=== PATIENT | female | born 1990 | race Caucasian/White ===

== ENCOUNTER 2017-05-28 18:22 | Emergency (ER) | payer BC ==
[2017-05-28 18:33] VITALS: TEMP 97.3; BMI 25.0
[2017-05-28] MEDS ORDERED: ONDANSETRON 4 MG/2 ML VIAL ONE (18:34)
[2017-05-28] MEDS ORDERED: SODIUM CHLORIDE 1,000 ML IV STA (19:01)
--- NOTE | 2017-05-28 19:01 | PDOC ---
History of Present Illness - General Chief Complaint: Nausea/Vomiting Stated Complaint: VOMITING Time Seen by Provider: 05/28/17 18:31 Past History - Past Medical History Allergies/Adverse Reactions: Allergies Allergy/AdvReac Type Severity Reaction Status Date / Time No Known Allergies Allergy Verified 05/28/17 18:40 Home Medications: Ambulatory Orders NK [No Known Home Medication] 05/28/17 - Psycho/Social/Smoking Cessation Hx Anxiety: No Suicidal Ideation: No Smoking History: Never smoked Have you smoked in the past 12 months: No Information on smoking cessation initiated: No Hx Alcohol Use: No Drug/Substance Use Hx: No Substance Use Type: None Review of Systems - Review of Systems Able to Perform ROS?: Yes Is the patient limited Wolof proficient: No Constitutional: No: Symptoms Reported, See HPI, Chills, Diaphoresis, Fever, Loss of Appetite, Malaise, Night Sweats, Weakness, Weight Stable, Unintentional Wgt. Loss, Unexplained wgt Loss, Other HEENTM: No: Symptoms Reported, See HPI, Eye Pain, Blurred Vision, Tearing, Recent change in vision, Double Vision, Cataracts, Ear Pain, Ocular Prothesis, Ear Discharge, Nose Pain, Nose Congestion, Tinnitus, Nose Bleeding, Hearing Loss , Throat Pain, Throat Swelling, Mouth Pain, Dental Problems, Difficulty Swallowing, Mouth Swelling, Other Respiratory: No: Symptoms reported, See HPI, Cough, Orthopnea, Shortness of Breath, SOB with Exertion, SOB at Rest, Stridor, Wheezing, Productive cough, Hemoptysis, Other Cardiac (ROS): No: Symptoms Reported, See HPI, Chest Pain, Edema, Irregular Heart Rate, Lightheadedness, Palpitations, Syncope, Chest Tightness, Other ABD/GI: Yes: Nausea, Vomiting : No: Symptoms Reported, See HPI, Burning, Dysuria, Discharge, Frequency, Flank Pain, Hematuria, Incontinence, Pain, Urgency, Testicular Mass, Testicular Swelling, Lesions, Testicular Pain, Other Neurological: No: Symptoms reported, See HPI, Headache, Numbness, Paresthesia, Pre-Existing Deficit, Seizure, Tingling, Tremors, Weakness, Unsteady Gait, Ataxia, Dizziness, Other Hematologic/Lymphatic: No: Symptoms Reported, See HPI, Anemia, Blood Clots, Easy Bleeding, Easy Bruising, Bleeding Diathesis, Lymph Node Abnormalities, Swollen Glands, Other *Physical Exam - Vital Signs Last Vital Signs Temp Pulse Resp BP Pulse Ox 97.3 F L 50 L 16 103/62 100 05/28/17 18:25 05/28/17 18:25 05/28/17 18:25 05/28/17 18:25 05/28/17 18:25 - Physical Exam General Appearance: Yes: Nourished HEENT: positive: Normal ENT Inspection, Normal Voice ED Treatment Course - LABORATORY CBC & Chemistry Diagram: 05/28/17 19:05 05/28/17 19:05 *DC/Admit/Observation/Transfer Diagnosis at time of Disposition: Hypokalemia - Discharge Dispostion Disposition: HOME Condition at time of disposition: Stable - Patient Instructions Print Language: [place] ISLAND[place]
[2017-05-28 19:15] LABS: BASOPHIL 0.4 % (0-2.0); EOSINOPHIL 1.8 % (0-4.5); MCH 28.4 pg (25.7-33.7); MCHC 33.6 g/dl (32.0-36.0); MEAN CELL VOLUME 84.6 fl (80-96); MEAN PLT VOLUME 8.7 fl (7.5-11.1); PLATELET COUNT 234 K/MM3 (134-434); RDW 16.9 % (11.6-15.6); WHITE BLOOD COUNT 6.3 K/mm3 (4.0-10.0)
[2017-05-28] MEDS ORDERED: METOCLOPRAMIDE HCL INJECTION 10 MG/2 ML VIAL IVPUSH ONE (19:28)
--- NOTE | 2017-05-28 19:39 | PDOC ---
Attending Attestation - Resident Resident Name: Gustavo Salas - HPI HPI: 05/28/17 19:38 26 yo female with 1 day of nausea and vomiting.no fever ,no bloody stools.no recent travel. 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 plan preg test,cbc,comp , IVF,anti emetics and re eval
--- NOTE | 2017-05-28 19:40 | PDOC ---
History of Present Illness - General Chief Complaint: Nausea/Vomiting Stated Complaint: VOMITING Time Seen by Provider: 05/28/17 18:31 History Source: Patient Exam Limitations: No Limitations - History of Present Illness Initial Comments: 05/28/17 19:37 The patient is a 26F with no PMH who presents to the ED with nausea, vomiting, heartburn, and complaints of weakness. This started yesterday while she was at work. She was dismissed from work and states she vomited all day. She woke up this morning feeling weak, continued vomiting, had no energy, and states that she throws up everything that she eats. This happened to her 1 year ago and she states she came to the ED and was given a K drip. Her LMP was 1 month ago. Her vomitus is non bloody non bilious. She states that school has been a stressor in her life. ROS+: nausea, vomiting, heartburn, numbness/tingling in her hands, SOB which has resolved ROS-: dizzy, lightheaded, fever, chills, diarrhea, constipation, dysuria, headache, chest pain PSH: None Allergies: NKDA Social: No smoking, drinking, drugs Past History - Past Medical History Allergies/Adverse Reactions: Allergies Allergy/AdvReac Type Severity Reaction Status Date / Time No Known Allergies Allergy Verified 05/28/17 18:40 Home Medications: Ambulatory Orders NK [No Known Home Medication] 05/28/17 - Psycho/Social/Smoking Cessation Hx Anxiety: No Suicidal Ideation: No Smoking History: Never smoked Have you smoked in the past 12 months: No Information on smoking cessation initiated: No Hx Alcohol Use: No Drug/Substance Use Hx: No Substance Use Type: None Review of Systems - Review of Systems Able to Perform ROS?: Yes Is the patient limited Lithuanian proficient: No Constitutional: Yes: Malaise, Weakness. No: Chills, Diaphoresis, Fever Respiratory: Yes: Shortness of Breath (resolved) Cardiac (ROS): No: Chest Pain ABD/GI: Yes: Nausea, Vomiting, Indigestion. No: Constipated, Diarrhea Neurological: Yes: Numbness, Paresthesia, Weakness Psychiatric: Yes: Stressors *Physical Exam - Vital Signs Last Vital Signs Temp Pulse Resp BP Pulse Ox 97.3 F L 50 L 16 103/62 100 05/28/17 18:25 05/28/17 18:25 05/28/17 18:25 05/28/17 18:25 05/28/17 18:25 - Physical Exam General Appearance: Yes: Appropriately Dressed, Mild Distress Respiratory/Chest: positive: Lungs Clear, Normal Breath Sounds. negative: Respiratory Distress, Crackles, Rales, Wheezing Cardiovascular: positive: Regular Rhythm, Regular Rate, S1, S2, Bradycardia Gastrointestinal/Abdominal: positive: Normal Bowel Sounds, Flat, Soft, Tenderness (to deep palpation, diffuse). negative: Tender Musculoskeletal: negative: CVA Tenderness, CVA Tenderness (R), CVA Tenderness (L ) Extremity: positive: Normal Inspection, Normal Range of Motion Integumentary: positive: Dry. negative: Swelling Neurologic: positive: Fully Oriented Heart Score/ECG Review - ECG Intrepretation Rhythm: Regular Rhythm - Hi Hat Hi Hat: Normal - ST and T Prolonged Q-T Interval: Yes - ECG Impressions Normal ECG: Yes Bradycardia: Yes ED Treatment Course - LABORATORY CBC & Chemistry Diagram: 05/28/17 19:05 05/28/17 19:05 - ADDITIONAL ORDERS Additional order review: 05/28/17 19:05 RBC 4.22 MCV 84.6 MCHC 33.6 RDW 16.9 H MPV 8.7 Neutrophils % 64.0 Lymphocytes % 28.4 Monocytes % 5.4 Eosinophils % 1.8 Basophils % 0.4 Medical Decision Making - Medical Decision Making 05/28/17 19:45 Patient is a 26 F with no PMH who presents with nausea, vomiting, indigestion, and weakness. She is mildly distressed. Labs have been drawn to check for infection, electrolyte abnormality, and . 05/28/17 19:51 K is 2.7. Oral K has been ordered after patient states that she can try an oral pill. 05/28/17 20:50 Patient rejects ultrasound. She is adamant about leaving. She is stable for discharge and will be discharged. *DC/Admit/Observation/Transfer Diagnosis at time of Disposition: Hypokalemia - Discharge Dispostion Disposition: HOME Condition at time of disposition: Stable Admit: No - Attestations Physician Attestion: 05/28/17 19:52 I, Dr. Gustavo Salas, attest that this document has been prepared under my direction and personally reviewed by me in its entirety. I further attest, that it accurately reflects all work, treatment, procedures and medical decision -making performed by me.
[2017-05-28 19:41] LABS: ALBUMIN 3.5 g/dl (3.4-5.0); ANION GAP 11 (8-16); BILIRUBIN,TOTAL 0.3 mg/dL (0.2-1.0); CALCIUM 8.1 mg/dL (8.5-10.1); CO2 23 mmol/L (21-32); CREATININE 0.6 mg/dL (0.55-1.02); GLUCOSE,RANDOM 88 mg/dL (74-106); SGOT/AST 165 U/L (15-37); SGPT/ALT 150 U/L (12-78); TOT PROT 6.4 g/dl (6.4-8.2)
[2017-05-28 19:42] LABS: ALK PHOS 48 U/L (45-117)
[2017-05-28] MEDS ORDERED: POTASSIUM CHLORIDE TABS 20 MEQ TABLET.ER (FP) PO ONE ×4 (19:47→21:06)
[2017-05-28] MEDS ORDERED: METOCLOPRAMIDE HCL INJECTION 10 MG/2 ML VIAL ONE (19:48)
[2017-05-28 21:21] VITALS: BP 110/70; PULSE 68
--- NOTE | 2017-05-29 10:42 | EKG ---
Test Reason : Blood Pressure : / mmHG Vent. Rate : 047 BPM Atrial Rate : 047 BPM P-R Int : 126 ms QRS Dur : 086 ms QT Int : 570 ms P-R-T Axes : 032 054 058 degrees QTc Int : 504 ms SINUS BRADYCARDIA PROLONGED QT ABNORMAL ECG NO PREVIOUS ECGS AVAILABLE Confirmed by CHLOE DAS, STACY ([id number]) on 05/29/2017 10:42:33 AM Referred By: Confirmed By:STACY CORONA MD
== END 2017-05-28 21:17 | disposition home or self-care (01) ==
LOC: JER 18:22
PROC: 3E0337Z Introduction of Electrolytic and Water Balance Substance into Peripheral Vein, Percutaneous Approach (ICD-10-PCS; principal; 2017-05-28)
DX: E87.6 Hypokalemia (principal)
CPT/HCPCS: 36415; 80053; 83690; 84703; 85025; 93005; 93010; 99282-25

== ENCOUNTER → 2017-05-30 | Emergency (ER) | payer BC ==
[~2017-05-30] MED LIST: ACETAMINOPHEN/CAFFEINE/BUTALBITAL 1 TAB ONE; ACETAMINOPHEN/CAFFEINE/BUTALBITAL 1 TAB PO ONE; KETOROLAC TROMETHAMINE 30 MG/1 ML VIAL IVPUSH ONE; KETOROLAC TROMETHAMINE 30 MG/1 ML VIAL ONE; MAGNESIUM SULF 50% (8.12 MEQ/2 ML-1 GM VIAL) IVPB ONE; MAGNESIUM SULF 50% (8.12 MEQ/2 ML-1 GM VIAL) ONE; METOCLOPRAMIDE HCL INJECTION 10 MG/2 ML VIAL IVPB ONE; METOCLOPRAMIDE HCL INJECTION 10 MG/2 ML VIAL ONE; SODIUM CHLORIDE 1,000 ML IV STA; methylPREDNISolone NA SUCC 125 MG/2 ML VIAL IVPB ONE; methylPREDNISolone NA SUCC 125 MG/2 ML VIAL ONE
[2017-05-30 20:39] VITALS: BP 105/66; PULSE 84; TEMP 98.7; BMI 25.0
--- NOTE | 2017-05-30 20:57 | PDOC ---
History of Present Illness - General Chief Complaint: Headache Stated Complaint: HEADACHE Time Seen by Provider: 05/30/17 20:43 History Source: Patient Exam Limitations: No Limitations - History of Present Illness Initial Comments: 05/30/17 20:52 26yo Female patient w/ PmHx: Migraines, seen at [facility] earlier today for similar symptoms. Patient states taking Ibuprofen, Excedrin and "nothing is helping." LNMP 1 month ago. Denies n/v/d, fever. Reports 08/04 Severity. She reports she is not currently under the care of Neurology. Timing/Duration: reports: other (This morning.) Severity: Yes: severe Episode Description: See HPI Associated Symptoms: reports: nausea/vomiting. denies: denies symptoms, confusion, fatigue, fever/chills, insomnia, loss of consciousness, muscle spasms , numbness in legs/feet, paresthesia, ringing in ears, seizures, sleepy, slurred speech, tingling in legs/feet, trouble walking, vision changes, weakness , other Past History - Travel Traveled outside of the country in the last 30 days: No Close contact w/someone who was outside of country & ill: No - Past Medical History Allergies/Adverse Reactions: Allergies Allergy/AdvReac Type Severity Reaction Status Date / Time No Known Allergies Allergy Verified 05/28/17 18:40 Home Medications: Ambulatory Orders Acetaminophen with Codeine [Tylenol with Codeine #3 Tablet] 1 each PO DAILY 05/11 Clonazepam 0.125 mg PO DAILY 05/30/17 Dextroamphetamine/Amphetamine [Adderall Xr 30 mg Capsule] 30 mg PO DAILY Butalbit/Acetamin/Caff/Codeine [Fioricet-Cod 20-497-61-30 Cap] 1 each PO Q4H PRN #18 capsule MDD 6 tabs 05/31/17 Ibuprofen 600 mg PO Q6H PRN #20 tablet 05/31/17 - Psycho/Social/Smoking Cessation Hx Anxiety: No Suicidal Ideation: No Smoking History: Unknown if ever smoked Have you smoked in the past 12 months: No Hx Alcohol Use: No Drug/Substance Use Hx: No Substance Use Type: None Neuro Specific PMHX - Complaint Specific PMHX Glaucoma: No Herniated Disk: No Laminectomy: No Migraine: Yes Multiple Sclerosis: No Neuropathy: No TIA: No Review of Systems - Review of Systems Able to Perform ROS?: Yes Is the patient limited Montserratian proficient: No Constitutional: No: Chills, Fever HEENTM: No: Eye Pain, Blurred Vision, Double Vision, Throat Pain ABD/GI: Yes: Nausea, Vomiting. No: Constipated, Diarrhea, Poor Appetite, Poor Fluid Intake, Rectal Bleeding, Abdominal cramping : No: Burning, Dysuria, Discharge, Frequency, Flank Pain, Hematuria, Pain Musculoskeletal: No: Back Pain, Neck Pain Integumentary: No: Bruising, Dryness, Erythema, Sweating Neurological: Yes: Headache. No: Seizure, Tremors, Weakness, Dizziness All Other Systems: Reviewed and Negative *Physical Exam - Vital Signs Last Vital Signs Temp Pulse Resp BP Pulse Ox 98.7 F 84 18 105/66 05/30/17 20:33 05/30/17 20:33 05/30/17 20:33 05/30/17 20:33 - Physical Exam General Appearance: Yes: Nourished, Appropriately Dressed, Mild Distress. No: Apparent Distress, Moderate Distress, Severe Distress HEENT: positive: EOMI, DAVID, Normal ENT Inspection, Normal Voice, Symmetrical, TMs Normal, Pharynx Normal, Photophobia. negative: Pharyngeal Erythema, Tonsillar Exudate, Tonsillar Erythema, Nasal Congestion, Rhinorrhea, TM Bulging , TM Dull, TM Erythema Neck: positive: Trachea midline, Supple. negative: Stridor, Lymphadenopathy (R) , Lymphadenopathy (L), Tender lateral Respiratory/Chest: positive: Lungs Clear, Normal Breath Sounds. negative: Chest Tender, Respiratory Distress, Accessory Muscle Use, Labored Respiration, Rapid RR, Rhonchi, Stridor, Wheezing Cardiovascular: positive: Regular Rhythm, Regular Rate Gastrointestinal/Abdominal: positive: Normal Bowel Sounds, Soft. negative: Distended, Guarding, Rebound, Tenderness Musculoskeletal: positive: Normal Inspection. negative: CVA Tenderness, Vertebral Tenderness Extremity: positive: Normal Capillary Refill, Normal Inspection, Normal Range of Motion. negative: Tender, Delayed Capillary Refill, Pedal Edema, Swelling, Calf Tenderness, Erythema, Inflammation Integumentary: positive: Normal Color, Dry, Warm Neurologic: positive: senior security engineer II-XII NML intact, Fully Oriented, Alert, Normal Mood/ Affect, Normal Response, Motor Strength 03/29 ED Treatment Course - LABORATORY CBC & Chemistry Diagram: 05/30/17 21:33 05/30/17 22:26 Progress Note - Progress Note Progress Note: Patient refused Ct-Scan at this time. 0052 7-4-17 Medical Decision Making - Medical Decision Making 05/31/17 00:58 Search Terms: Sofia Wright, 1990 Search Date: 05/31/2017 12:57:31 AM The Drug Utilization Report below displays all of the controlled substance prescriptions, if any, that your patient has filled in the last twelve months. The information displayed on this report is compiled from pharmacy submissions to the Department, and accurately reflects the information as submitted by the pharmacies. This report was requested by: Alexander Villatoro | Reference #: [id number] Others' Prescriptions Patient Name: Sofia Wright Date: 1990 Address: [address] [place] [address] Sex: Female Rx Written Rx Dispensed Drug Quantity Days Supply Prescriber Name 05/27/2017 05/28/2017 clonazepam 1 mg tablet 90 30 Kiblitsky, Daina 05/27/2017 05/28/2017 adderall xr 30 mg capsule 30 30 Kiblitsky, Daina 04/24/2017 05/01/2017 clonazepam 1 mg tablet 90 30 Kiblitsky, Daina 04/24/2017 05/01/2017 adderall xr 30 mg capsule 30 30 Kiblitsky, Daina 03/25/2017 04/02/2017 clonazepam 1 mg tablet 90 30 Kiblitsky, Daina 03/25/2017 04/02/2017 adderall xr 30 mg capsule 30 30 Kiblitsky, Daina 02/26/2017 03/06/2017 adderall xr 30 mg capsule 30 30 Kiblitsky, Daina 01/31/2017 02/03/2017 clonazepam 1 mg tablet 90 30 Kiblitsky, Daina 01/21/2017 01/28/2017 adderall xr 30 mg capsule 30 30 Kiblitsky, Daina 12/31/2016 01/04/2017 clonazepam 1 mg tablet 90 30 Trang Saldivar MD 12/10/2016 12/12/2016 adderall xr 20 mg capsule 30 30 Kiblitsky, Daina Patient Name: Sofia Wright Date: 1990 Address: [place] [address] Sex: Female Rx Written Rx Dispensed Drug Quantity Days Supply Prescriber Name 11/08/2016 11/19/2016 clonazepam 1 mg tablet 90 30 CherTrang lozano MD 11/08/2016 11/17/2016 vyvanse 30 mg capsule 30 30 CherfasTrang MD 10/09/2016 10/16/2016 vyvanse 30 mg capsule 30 30 CherfasTrang MD 10/09/2016 10/16/2016 clonazepam 1 mg tablet 90 30 CherfasTrang MD 09/23/2016 09/23/2016 tramadol hcl 50 mg tablet 30 15 Magaly Vegas MD 09/08/2016 09/14/2016 vyvanse 40 mg capsule 30 30 CherfasTrang MD 08/31/2016 08/31/2016 clonazepam 1 mg tablet 90 30 Amos Castellanos MD 08/20/2016 08/20/2016 oxycodone-acetaminophen 5-325 mg tab 4 1 Trang Saldivar MD 08/02/2016 08/02/2016 vyvanse 40 mg capsule 30 30 CherfasTrang MD 07/23/2016 07/27/2016 acetaminophen-cod #3 tablet 30 30 CherfasTrang MD 07/12/2016 07/12/2016 acetaminophen-cod #3 tablet 20 3 Constantino Liu MD 07/02/2016 07/02/2016 vyvanse 30 mg capsule 30 30 CherfasTrang MD Patient Name: Sofia Wright Date: 1990 Address: [address] [place] [id number] Sex: Female Rx Written Rx Dispensed Drug Quantity Days Supply Prescriber Name 08/23/2016 08/23/2016 tramadol hcl 50 mg tablet 6 2 Tyler Corcoran MD * - Drugs marked with an asterisk are compound drugs. If the compound drug is made up of more than one controlled substance, then each controlled substance will be a separate row in the table. *DC/Admit/Observation/Transfer Diagnosis at time of Disposition: Headache Qualifiers: Headache type: tension-type Headache chronicity pattern: acute headache Intractability: not intractable Qualified Code(s): G44.209 - Tension-type headache, unspecified, not intractable Leukocytosis Qualifiers: Leukocytosis type: unspecified Qualified Code(s): D72.829 - Elevated white blood cell count, unspecified - Discharge Dispostion Disposition: HOME Condition at time of disposition: Improved Admit: No - Prescriptions Prescriptions: Butalbit/Acetamin/Caff/Codeine [Fioricet-Cod 66-131-86-30 Cap] 1 each PO Q4H PRN #18 capsule MDD 6 tabs PRN Reason: Severe Headache Ibuprofen 600 mg PO Q6H PRN #20 tablet PRN Reason: Mild Pain - Referrals Referrals: STAFF,NOT ON [Primary Care Provider] - Marco Gunderson MD [Staff Physician] - - Patient Instructions Printed Discharge Instructions: DI for Migraine, DI for Headache Additional Instructions: FOLLOW UP WITH DR. GUNDERSON (NEUROLOGY). CALL TO SCHEDULE APPOINTMENT. TAKE MEDICATIONS PRESCRIBED. MOTRIN FOR MILD PAIN. FIORICET FOR SEVERE PAIN NOT RELIEVED BY MOTRIN. DO NOT TAKE EXTRA TYLENOL WHEN TAKING FIORICET. DRINK PLENTY WATER AND REST. YOU NEED TO SEE NEUROLOGY SPECIALIST WITHOUT FAIL. Print Language: CONGOLESE - Post Discharge Activity Work/School Note: Back to Work
[2017-05-30 21:59] LABS: BASOPHIL 0.4 % (0-2.0); EOSINOPHIL 0.1 % (0-4.5); MCHC 32.9 g/dl (32.0-36.0); MEAN CELL VOLUME 85.1 fl (80-96); MEAN PLT VOLUME 9.2 fl (7.5-11.1); NEUTROPHILS 85.7 % (42.8-82.8); PLATELET COUNT 267 K/MM3 (134-434); RDW 16.7 % (11.6-15.6); WHITE BLOOD COUNT 18.2 K/mm3 (4.0-10.0)
[2017-05-30 22:20] LABS: PH,URINE 6.5 (5.0-8.0); URINE APPEARANCE CLEAR; URINE BILIRUBIN NEGATIVE (NEGATIVE); URINE COLOR LT. YELLOW; URINE GLUCOSE (UA) NEGATIVE (NEGATIVE); URINE KETONE NEGATIVE (NEGATIVE); URINE LEUK ESTERASE NEGATIVE (NEGATIVE); URINE NITRITE NEGATIVE (NEGATIVE); URINE UROBILINOGEN 0.2 E.U/dl E.U./dl (0.2-1.0)
[2017-05-30 22:57] LABS: URINE BLOOD 2+ (NEGATIVE); URINE PROTEIN 1+ (NEGATIVE)
[2017-05-30 23:25] LABS: URINE HYALINE CAST 1 /lpf; URINE MUCUS RARE; URINE RBC 22 /hpf (0-3); URINE WBC 1 /hpf (3-5)
[2017-05-31 00:09] LABS: ALBUMIN 4.4 g/dl (3.4-5.0); ALK PHOS 70 U/L (45-117); ANION GAP 11 (8-16); BILIRUBIN,TOTAL 0.3 mg/dL (0.2-1.0); CALCIUM 9.5 mg/dL (8.5-10.1); CO2 23 mmol/L (21-32); CREATININE 0.5 mg/dL (0.55-1.02); GLUCOSE,RANDOM 102 mg/dL (74-106); SGOT/AST 40 U/L (15-37); SGPT/ALT 112 U/L (12-78); TOT PROT 7.6 g/dl (6.4-8.2)
== END | disposition home or self-care (01) ==
LOC: JER 20:22
PROC: 3E0333Z Introduction of Anti-inflammatory into Peripheral Vein, Percutaneous Approach (ICD-10-PCS; principal; 2017-05-30)
PROC: 3E033GC Introduction of Other Therapeutic Substance into Peripheral Vein, Percutaneous Approach (ICD-10-PCS; 2017-05-30)
PROC: 3E0333Z Introduction of Anti-inflammatory into Peripheral Vein, Percutaneous Approach (ICD-10-PCS; 2017-05-30)
PROC: 3E033GC Introduction of Other Therapeutic Substance into Peripheral Vein, Percutaneous Approach (ICD-10-PCS; 2017-05-30)
DX: G44.209 Tension-type headache, unspecified, not intractable (principal); D72.829 Elevated white blood cell count, unspecified
CPT/HCPCS: 36415; 80053; 81003; 81015; 83605; 84703; 85025; 85651; 99283-25

== ENCOUNTER 2017-05-31 09:32 | Emergency (ER) | payer BC ==
[2017-05-31 09:55] VITALS: TEMP 97.8; BMI 21.9
--- NOTE | 2017-05-31 10:06 | PDOC ---
History of Present Illness - General Stated Complaint: HEADACHE Time Seen by Provider: 05/31/17 09:36 History Source: Patient Exam Limitations: No Limitations - History of Present Illness Initial Comments: 05/31/17 10:09 26-year-old female presents to the ED with complaints of generalized throbbing pressure to her head for the past few days patient was seen here twice in the past week and was given. Set upon discharge yesterday which she states did not fill since she wanted to go home and sleep after being discharged. Patient denies fever, chills, dizziness, visual changes, neck stiffness, rash, sore throat, dental discomfort, ear pain, dysuria, abdominal pain, chest pain or shortness of breath. Pt does complain of mild nausea without vomiting presently. Patient states a few days prior to that did have some nausea and vomiting where she states was given nausea medication and potassium replacement and then discharged. Patient states history of migraines but does not follow a neurologist or had a head CT. Patient states takes Adderall and Klonopin but denies any recent change in dosing. 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 Timing/Duration: reports: constant Severity: Yes: moderate Past History - Travel Traveled outside of the country in the last 30 days: No Close contact w/someone who was outside of country & ill: No - Past Medical History Allergies/Adverse Reactions: Allergies Allergy/AdvReac Type Severity Reaction Status Date / Time No Known Allergies Allergy Verified 05/31/17 09:42 Home Medications: Ambulatory Orders Acetaminophen with Codeine [Tylenol with Codeine #3 Tablet] 1 each PO DAILY 05/11 Clonazepam 0.125 mg PO DAILY 05/30/17 Dextroamphetamine/Amphetamine [Adderall Xr 30 mg Capsule] 30 mg PO DAILY Butalbit/Acetamin/Caff/Codeine [Fioricet-Cod 60-868-41-30 Cap] 1 each PO Q4H PRN #18 capsule MDD 6 tabs 05/31/17 Ibuprofen 600 mg PO Q6H PRN #20 tablet 05/31/17 Metoclopramide HCl [Reglan] 10 mg PO BID PRN #12 tablet 05/31/17 Psychiatric Problems: Yes - Reproductive History LMP Normal: Yes Is Patient Now?: No - Psycho/Social/Smoking Cessation Hx Anxiety: No Suicidal Ideation: No Smoking History: Unknown if ever smoked Have you smoked in the past 12 months: No Hx Alcohol Use: No Drug/Substance Use Hx: No Substance Use Type: None Patient Lives Alone: No Lives with/in: parents Neuro Specific PMHX - Complaint Specific PMHX Glaucoma: No Herniated Disk: No Laminectomy: No Migraine: Yes Multiple Sclerosis: No TIA: No Review of Systems - Review of Systems Able to Perform ROS?: Yes Constitutional: No: Symptoms Reported HEENTM: No: Symptoms Reported, Eye Pain, Blurred Vision, Tearing Respiratory: No: Symptoms reported Cardiac (ROS): No: Symptoms Reported ABD/GI: Yes: Nausea. No: Symptoms Reported, Vomiting : No: Symptoms Reported Musculoskeletal: No: Symptoms Reported Integumentary: No: Symptoms Reported Neurological: Yes: Headache. No: Numbness, Tingling, Weakness, Dizziness Endocrine: No: Symptoms Reported *Physical Exam - Physical Exam General Appearance: Yes: Nourished, Appropriately Dressed. No: Apparent Distress HEENT: positive: EOMI, DAVID, TMs Normal, Pharynx Normal. negative: Pale Conjunctivae Neck: positive: Normal Thyroid, Supple. negative: Tender, Decreased range of motion Respiratory/Chest: positive: Lungs Clear, Normal Breath Sounds. negative: Respiratory Distress, Accessory Muscle Use Cardiovascular: positive: Regular Rhythm, Regular Rate. negative: Murmur Gastrointestinal/Abdominal: positive: Soft. negative: Tenderness Extremity: positive: Normal Capillary Refill. negative: Pedal Edema Integumentary: positive: Normal Color, Warm, Moist. negative: Rash Neurologic: positive: Normal Mood/Affect, Motor Strength 5/5 (ambulatory) ED Treatment Course - LABORATORY CBC & Chemistry Diagram: 05/31/17 11:12 05/31/17 11:12 Medical Decision Making - Medical Decision Making 05/31/17 10:05 Patient here with generalized throbbing pressure to her head with mild nausea since that around 6 this morning but states came to the ER yesterday for the same and was given medication which resolved her headache but then returned while at home. Patient was given a prescription for Fioricet which she did not parts picker. Patient here has, vital signs. Patient yesterday had a elevated white count with a normal ESR. Patient refused head CT at that time. Patient concerning for intracranial pathology, meningitis, dehydration, and electrolyte imbalance. Patient ordered for CBC, comp, magnesium, urine toxicology, lactic acid, IV fluids, Reglan, Toradol, and fioricet. 05/31/17 12:37 Laboratory Tests 05/31/17 05/31/17 05/31/17 11:12 11:12 11:12 Sodium 138 Potassium 4.3 Chloride 103 Carbon Dioxide 23 Anion Gap 12 BUN 5 L D Creatinine 0.7 D Creat Clearance w eGFR > 60 Random Glucose 128 H D Calcium 9.9 Total Bilirubin 0.3 AST 33 ALT 107 H Alkaline Phosphatase 76 Total Protein 8.3 H Urine Protein 2+ H Urine Blood 2+ H Ur Leukocyte Esterase Negative Urine RBC 3 Opiates Screen Positive Barbiturate Screen Positive Ur Amphetamines Screen Positive Head CT negative for acute findings. Patient given IV Tylenol since she stated the headache was still present after giving the above medications. 05/31/17 13:01 Patient states headache has gone down to a 4/10 and just wants to go home and rest in bed. Patient requesting a cab service. Patient also requesting something for the nausea if nausea is to return. Patient be discharged home with Reglan and told to parts picker Fioricet along with the Reglan and call the neurologist to make an appointment. 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 patient understood to return to ED if she develops any worsening symptoms. *DC/Admit/Observation/Transfer Diagnosis at time of Disposition: Headache Migraine Qualifiers: Migraine type: unspecified Intractability: intractable - Discharge Dispostion Disposition: HOME Condition at time of disposition: Improved - Prescriptions Prescriptions: Metoclopramide HCl [Reglan] 10 mg PO BID PRN #12 tablet PRN Reason: Nausea And/Or Vomiting - Referrals Referrals: Marco Kong MD [Staff Physician] - - Patient Instructions Printed Discharge Instructions: DI for Migraine Additional Instructions: Please drink plenty of fluids and eat small frequent meals. Please avoid triggers that aggravate your headache. Please take medication as prescribed and call Dr. Kong as previously discussed on your last emergency room visit
[2017-05-31] MEDS ORDERED: KETOROLAC TROMETHAMINE 30 MG/1 ML VIAL IVPUSH ONE (10:19)
[2017-05-31] MEDS ORDERED: METOCLOPRAMIDE HCL INJECTION 10 MG/2 ML VIAL IVPB ONE (10:19)
[2017-05-31] MEDS ORDERED: SODIUM CHLORIDE 1,000 ML IV STA (10:20)
[2017-05-31] MEDS ORDERED: KETOROLAC TROMETHAMINE 30 MG/1 ML VIAL ONE (10:22)
[2017-05-31] MEDS ORDERED: METOCLOPRAMIDE HCL INJECTION 10 MG/2 ML VIAL ONE (10:22)
[2017-05-31] MEDS ORDERED: ACETAMINOPHEN/CAFFEINE/BUTALBITAL 1 TAB PO ONE (10:45)
[2017-05-31 11:36] LABS: BASOPHIL 0.2 % (0-2.0); MCH 28.5 pg (25.7-33.7); MEAN CELL VOLUME 86.1 fl (80-96); MEAN PLT VOLUME 9.1 fl (7.5-11.1); NEUTROPHILS 88.5 % (42.8-82.8); PLATELET COUNT 324 K/MM3 (134-434); RDW 17.1 % (11.6-15.6); WHITE BLOOD COUNT 8.9 K/mm3 (4.0-10.0)
[2017-05-31 11:43] LABS: URINE APPEARANCE CLEAR; URINE BILIRUBIN NEGATIVE (NEGATIVE); URINE COLOR STRAW; URINE GLUCOSE (UA) NEGATIVE (NEGATIVE); URINE KETONE NEGATIVE (NEGATIVE); URINE LEUK ESTERASE NEGATIVE (NEGATIVE); URINE NITRITE NEGATIVE (NEGATIVE); URINE UROBILINOGEN NEGATIVE E.U./dl (0.2-1.0)
[2017-05-31 11:46] LABS: URINE BLOOD 2+ (NEGATIVE); URINE PROTEIN 2+ (NEGATIVE)
[2017-05-31] MEDS ORDERED: ACETAMINOPHEN 1000 MG/100 ML VIAL (NON FORMULARY) IVPB ONE (11:53)
[2017-05-31 11:54] LABS: URINE RBC 3 /hpf (0-3); URINE WBC 1 /hpf (3-5)
[2017-05-31] MEDS ORDERED: ACETAMINOPHEN INJECTION 100 ML IVPB ONE (11:55)
[2017-05-31 12:02] LABS: ALBUMIN 4.6 g/dl (3.4-5.0); ALK PHOS 76 U/L (45-117); ANION GAP 12 (8-16); BILIRUBIN,TOTAL 0.3 mg/dL (0.2-1.0); CALCIUM 9.9 mg/dL (8.5-10.1); CO2 23 mmol/L (21-32); CREATININE 0.7 mg/dL (0.55-1.02); GLUCOSE,RANDOM 128 mg/dL (74-106); SGOT/AST 33 U/L (15-37); SGPT/ALT 107 U/L (12-78); TOT PROT 8.3 g/dl (6.4-8.2)
[2017-05-31 12:49] LABS: URINE MARIJUANA THC NEGATIVE ng/ml (CUTOFF=50)
--- NOTE | 2017-05-31 13:03 | PDOC ---
*Physical Exam - Vital Signs Last Vital Signs Temp Pulse Resp BP Pulse Ox 97.8 F 71 18 114/85 100 05/31/17 09:35 05/31/17 09:35 05/31/17 09:35 05/31/17 09:35 05/31/17 09:35 - Physical Exam General Appearance: Yes: Nourished, Appropriately Dressed HEENT: positive: DAVID, Normal ENT Inspection Neck: positive: Trachea midline Respiratory/Chest: positive: Lungs Clear, Normal Breath Sounds Cardiovascular: positive: Regular Rhythm, Regular Rate, S1, S2. negative: Edema Gastrointestinal/Abdominal: positive: Normal Bowel Sounds, Flat, Soft Musculoskeletal: positive: Normal Inspection Extremity: positive: Normal Capillary Refill Integumentary: positive: Normal Color, Dry, Warm Neurologic: positive: sprinkling system installer II-XII NML intact, Fully Oriented, Alert, Normal Mood/ Affect, Motor Strength 03/29 ED Treatment Course - LABORATORY CBC & Chemistry Diagram: 05/31/17 11:12 05/31/17 11:12 - ADDITIONAL ORDERS Additional order review: Laboratory Results 05/31/17 05/31/17 05/31/17 11:12 11:12 11:12 Sodium 138 Potassium 4.3 Chloride 103 Carbon Dioxide 23 Anion Gap 12 BUN 5 L D Creatinine 0.7 D Creat Clearance w eGFR > 60 Random Glucose 128 H D Calcium 9.9 Total Bilirubin 0.3 AST 33 ALT 107 H Alkaline Phosphatase 76 Total Protein 8.3 H Albumin 4.6 Urine Color Straw Urine Appearance Clear Urine pH 6.0 Urine Protein 2+ H Urine Glucose (UA) Negative Urine Ketones Negative Urine Blood 2+ H Urine Nitrite Negative Urine Bilirubin Negative Urine Urobilinogen Negative Ur Leukocyte Esterase Negative Urine RBC 3 Urine WBC 1 Ur Epithelial Cells Rare Opiates Screen Positive Methadone Screen Negative Barbiturate Screen Positive Phencyclidine Screen Negative Ur Amphetamines Screen Positive MDMA (Ecstasy) Screen Negative Benzodiazepines Screen Negative Cocaine Screen Negative U Marijuana (THC) Screen Negative 05/31/17 11:12 RBC 5.01 MCV 86.1 MCHC 33.0 RDW 17.1 H MPV 9.1 Neutrophils % 88.5 H Lymphocytes % 9.7 Monocytes % 1.6 L Eosinophils % 0.0 D Basophils % 0.2 - Medications Given in the ED: ED Medications Discontinued Medications Generic Name Dose Route Start Last Admin Trade Name Freq PRN Reason Stop Dose Admin Acetaminophen 1,000 mg 05/31/17 11:53 05/31/17 11:59 Ofirmev Injection - IVPB 05/31/17 11:54 1,000 mg ONCE ONE Administration Acetaminophen/Butalbital/Caffeine 1 tablet 05/31/17 10:45 05/31/17 10:47 Fioricet - PO 05/31/17 10:46 1 tablet ONCE ONE Administration Sodium Chloride 1,000 mls @ 1,000 mls/hr 05/31/17 10:20 05/31/17 10:47 Normal Saline - IV 05/31/17 11:19 1,000 mls/hr ASDIR STA Administration Ketorolac Tromethamine 30 mg 05/31/17 10:19 05/31/17 10:47 Toradol Injection - IVPUSH 05/31/17 10:20 30 mg ONCE ONE Administration Metoclopramide HCl 10 mg 05/31/17 10:19 05/31/17 10:47 Reglan Injection - IVPB 05/31/17 10:20 10 mg ONCE ONE Administration Medical Decision Making - Medical Decision Making 05/31/17 12:58 26 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 pt has been seen in ED several times in past few days for same. refused CT head on recent visit. states had been taking excedrin for pain at home and a tylenol #3 her dad gave her. states sleep has been ok, school is going well. denies depression or other drug use. no n/v no f/c no head trauma. no change to vision and no weakness. 05/31/17 13:00 on exam awake alert lungs clear heart regular, abd soft NT . ext wwp nuero alert oriented. moves all ext good strenght plaN; seen and examined, and discussed with JESUS forbes, agree with assessment and plan. 05/31/17 13:02 pt feeling improved. request dc home. encouraged to followup with nuerology. ct scan normal *DC/Admit/Observation/Transfer Diagnosis at time of Disposition: Headache
[2017-05-31 13:14] VITALS: BP 115/82; PULSE 95
== END 2017-05-31 13:13 | disposition home or self-care (01) ==
LOC: JER 09:32
PROC: 3E033NZ Introduction of Analgesics, Hypnotics, Sedatives into Peripheral Vein, Percutaneous Approach (ICD-10-PCS; principal; 2017-05-31)
PROC: 3E033GC Introduction of Other Therapeutic Substance into Peripheral Vein, Percutaneous Approach (ICD-10-PCS; 2017-05-31)
PROC: 3E0333Z Introduction of Anti-inflammatory into Peripheral Vein, Percutaneous Approach (ICD-10-PCS; 2017-05-31)
PROC: 3E0337Z Introduction of Electrolytic and Water Balance Substance into Peripheral Vein, Percutaneous Approach (ICD-10-PCS; 2017-05-31)
DX: R51 Headache (principal)
CPT/HCPCS: 36415; 70450-TC; 80053; 80307; 81003; 81015; 83605; 85025; 99282-25